=== PATIENT | female | born 1985 | race American Indian/Alaskan Native ===

== ENCOUNTER 2018-03-15 11:03 | Inpatient (IN) | payer OTHER ==
[2018-03-15 12:42] LABS: HCG Qualitative,Urine Negative (Negative)
[2018-03-15 12:47] LABS: Bacteria,Urine 1+ /HPF (Negative); Bilirubin,Urine NEG (Negative); Blood,Urine NEG (Negative); Color,Urine Yellow (Yellow); Mucus,Urine FEW /HPF; Protein,Urine <15 mg/dL mg/dL (Negative); Urobilinogen,Urine < 2.0 mg/dL (<2.0)
[2018-03-15] MEDS ORDERED: BENTYL IM ONE (13:10)
[2018-03-15] MEDS ORDERED: ZOFRAN IV ONE ×2 (13:10→19:12)
[2018-03-15] MEDS ORDERED: PEPCID IV ONE (13:10)
[2018-03-15] MEDS ORDERED: NACL 0.9% 1000 ML 1,000 ML IV ONE (13:12)
--- NOTE | 2018-03-15 13:13 | Emergency Department Report ---
Blank Doc - Documentation Documentation: Patient is a 32-year-old female presented with nausea vomiting diarrhea for the past 2-3 days. Patient states she has some crampy diffuse abdominal discomfort. There is no point tenderness on palpation. Brief physical exam. Patient does state that she is feeling somewhat dizzy and her urinalysis she does have large amount of ketones without glucose. Patient will be moved to a treatment area for IV fluids and we'll check some basic labs just to rule out any acute electrolyte abnormality.
[2018-03-15 13:40] LABS: Basophils % (Auto) 0.3 % (0.0-1.8); Eosinophils % (Auto) 0.3 % (0.0-4.3); Hematocrit 45.4 % (30.3-42.9); Hemoglobin 15.1 gm/dl (10.1-14.3); Lymphocytes # (Auto) 1.3 K/mm3 (1.2-5.4); Lymphocytes % (Auto) 7.8 % (13.4-35.0); Mean Corpuscular HGB Conc 33 % (30-34); Mean Corpuscular Hemoglobin 30 pg (28-32); Mean Corpuscular Volume 90 fl (79-97); Monocytes # (Auto) 0.5 K/mm3 (0.0-0.8); Monocytes % (Auto) 3.2 % (0.0-7.3); Platelet Count 315 K/mm3 (140-440); Red Blood Count 5.04 M/mm3 (3.65-5.03); Red Cell Distribution Width 14.7 % (13.2-15.2)
[2018-03-15] MEDS ORDERED: D5NS 1,000 ML IV SCH (14:00)
[2018-03-15 14:02] LABS: BUN/Creatinine Ratio 24; Blood Urea Nitrogen 19 mg/dL (7-17); Calcium 9.6 mg/dL (8.4-10.2)
[2018-03-15 14:03] LABS: Alanine Aminotransferase 30 units/L (7-56); Albumin 4.8 g/dL (3.9-5); Hemolysis Index 19
--- NOTE | 2018-03-15 14:40 | Emergency Department Report ---
ED Abdominal Pain HPI - General Chief Complaint: Nausea/Vomiting/Diarrhea Stated Complaint: FLU LIKE SYMPTOMS Time Seen by Provider: 03/15/18 13:06 Source: patient Mode of arrival: Ambulatory Limitations: No Limitations - History of Present Illness Initial Comments: This is a 32-year-old female nontoxic, well nourished in appearance, no acute signs of distress presents to the ED with c/o of abdominal pain, nausea, vomiting and diarrhea x2 days. Patient describes abdominal pain as cramping and aching diffuse with level of 8/10. Patient stated that during vomiting she becomes shortness of breathe but otherwise patient denies any shortness of breathe. Patient denies any chest pain, headache, stiff neck, numbness, tingling , back pain, fever, chills, cough, hemoptysis, calf pain or calf tenderness. Patient denies any recent travels, long car rides, or recent hospital stays. Patient denies any allergies or PMH. MD Complaint: abdominal pain -: days(s) (2) Location: diffuse Radiation: none Migration to: no migration Severity: mild Severity scale (0 -10): 8 Quality: cramping, aching Consistency: constant Improves With: nothing Worsens With: nothing Associated Symptoms: nausea, vomiting, diarrhea. denies: fever, chills, constipation, dysuria, hematemesis, hematochezia, melena, hematuria, anorexia, syncope - Related Data LMP Date: 03/08/18 Home Medications Medication Instructions Recorded Confirmed Last Taken No Known Home Medications [No 03/15/18 03/15/18 Unknown Reported Home Medications] Allergies Allergy/AdvReac Type Severity Reaction Status Date / Time No Known Allergies Allergy Unverified 03/15/18 11:38 ED Review of Systems ROS: Stated complaint: FLU LIKE SYMPTOMS Other details as noted in HPI Constitutional: denies: chills, fever Eyes: denies: eye pain, eye discharge, vision change ENT: denies: ear pain, throat pain Respiratory: denies: cough, shortness of breath, wheezing Cardiovascular: denies: chest pain, palpitations Endocrine: no symptoms reported Gastrointestinal: abdominal pain, nausea, vomiting, diarrhea Genitourinary: denies: urgency, dysuria, discharge Musculoskeletal: denies: back pain, joint swelling, arthralgia Skin: denies: rash, lesions Neurological: denies: headache, weakness, paresthesias Psychiatric: denies: anxiety, depression Hematological/Lymphatic: denies: easy bleeding, easy bruising ED Past Medical Hx - Past Medical History Hx Asthma: Yes (bronchitis) - Surgical History Past Surgical History?: No - Social History Smoking Status: Current Every Day Smoker Substance Use Type: Alcohol, Marijuana - Medications Home Medications: Home Medications Medication Instructions Recorded Confirmed Last Taken Type No Known Home Medications [No 03/15/18 03/15/18 Unknown History Reported Home Medications] ED Physical Exam - General Limitations: No Limitations General appearance: alert, in no apparent distress - Head Head exam: Present: atraumatic, normocephalic - Eye Eye exam: Present: normal appearance Pupils: Present: normal accommodation - ENT ENT exam: Present: normal exam, normal orophraynx, mucous membranes moist, TM's normal bilaterally, normal external ear exam - Neck Neck exam: Present: normal inspection, full ROM. Absent: tenderness, meningismus, lymphadenopathy - Respiratory Respiratory exam: Present: normal lung sounds bilaterally. Absent: respiratory distress, wheezes, rales, rhonchi, stridor, chest wall tenderness, accessory muscle use, decreased breath sounds, prolonged expiratory - Cardiovascular Cardiovascular Exam: Present: regular rate, normal rhythm, normal heart sounds. Absent: irregular rhythm, systolic murmur, diastolic murmur, rubs, gallop - GI/Abdominal GI/Abdominal exam: Present: soft, tenderness (diffuse), normal bowel sounds. Absent: distended, guarding, rebound, rigid, diminished bowel sounds - Expanded GI/Abdominal Exam Expanded GI/Abdominal exam: Absent: psoas sign, obturator sign, heel tap sign, Jacobs's sign, Rovsing's sign, tenderness at Mcburney's Point, ascites - Rectal Rectal exam: Present: deferred - Extremities Exam Extremities exam: Present: normal inspection, full ROM, normal capillary refill - Back Exam Back exam: Present: normal inspection, full ROM - Neurological Exam Neurological exam: Present: alert, oriented X3, CN II-XII intact, normal gait - Psychiatric Psychiatric exam: Present: normal affect, normal mood - Skin Skin exam: Present: warm, dry, intact, normal color. Absent: rash ED Course Vital Signs 03/15/18 11:33 Temperature 97.7 F Pulse Rate 100 H Respiratory 20 Rate Blood Pressure 101/71 O2 Sat by Pulse 100 Oximetry - Reevaluation(s) Reevaluation #1: 03/15/18 14:51 Patient is speaking in full sentences with no signs of distress noted. - Consultations Consultation #1: 03/15/18 14:52 Patient has been consulted with Dr. Leal about patient history, physical exam , and labs and examined and screened patient and agrees to ED plan of care. Consultation #2: 03/15/18 16:40 Dr. Bateman hospitalist was consulted about patient and accepts patient to his services. Requested for Zosyn and Flagyl and bridge orders to [facility] with NPO diet. ED Medical Decision Making - Lab Data Result diagrams: 03/15/18 13:22 03/15/18 13:22 - Medical Decision Making This is a 32-year-old female that presents with acute colitis. Patient stable was examined by me and Dr. Leal. A CT of abdomen with contrast obtained and dictated by the radiologist. Patient is notified of the CT report with no questionable for the patient. Patient is started on Flagyl and Zosyn as requested by Dr. Bateman. Patient is admitted under hospitalist Dr. aBteman onto [facility]. Labs obtained. At time of admission, the patient does not seem toxic or ill in appearance. No acute signs of distress noted. Patient agrees to admission treatment plan of care. No further questions noted by the patient. Critical care attestation.: If time is entered above; I have spent that time in minutes in the direct care of this critically ill patient, excluding procedure time. ED Disposition Clinical Impression: Acute colitis Disposition: 09 OP ADMIT IP TO THIS HOSP Is pt being admited?: Yes Condition: Stable Referrals: PRIMARY CARE, [Primary Care Provider] - 3-5 Days
[2018-03-15 15:29] LABS: Lipase 10 units/L (13-60)
--- NOTE | 2018-03-15 16:03 | Cat Scan Report ---
FINAL REPORT PROCEDURE: CT ABDOMEN PELVIS W CON TECHNIQUE: Computerized axial tomography of the abdomen and pelvis was performed after the IV injection of iodinated nonionic contrast. HISTORY: abd pain COMPARISON: No prior studies are available for comparison. FINDINGS: Lower Lung kennedy: No focal abnormality seen. Upper Abdomen: There is a 5.6 millimeter well-circumscribed low-density nodule in the right lobe of the liver inferiorly laterally which appears represent a small hepatic cyst. The liver is otherwise unremarkable. The gallbladder, the adrenal glands, the pancreas and the spleen are unremarkable. Kidneys, Ureters and Urinary bladder: No abnormalities are seen. Retroperitoneum: Abdominal aorta appears normal. Nonspecific subcentimeter lymph nodes are seen in the retroperitoneum. No pathologically enlarged lymph nodes are identified. Bowel: There is abnormal wall thickening seen in the ascending colon, the hepatic flexure, the transverse colon splenic flexure and descending colon. I do not see evidence of bowel obstruction. No ascites or free intraperitoneal gas is seen. Normal-appearing appendix is seen in the right lower quadrant. Bowel loops otherwise are unremarkable. Reproductive organs: The uterus is deviated to the left of midline otherwise is unremarkable. No abnormal adnexal masses are identified. Other: No acute bony abnormalities are seen. IMPRESSION: Abnormal wall thickening seen right side of the colon transverse colon and descending colon consistent with a nonspecific colitis. Consider infectious colitis and inflammatory bowel disease. Barium enema may helpful for further evaluation. Small hepatic cyst is suspected. No other abnormalities are identified.
[2018-03-15] MEDS ORDERED: LEVAQUIN 750MG/150ML 750 MG/150 ML BAG IV ONE (16:16)
[2018-03-15] MEDS ORDERED: FLAGYL 500 MG/100 ML 500 MG/100 ML BAG IV SCH (17:00)
[2018-03-15] MEDS ORDERED: ZOSYN/NS 4.5GM/100ML 4.5 GM/100 ML VIAL IV ONE (17:30)
[2018-03-15] MEDS ORDERED: FLAGYL 500 MG/100 ML 500 MG/100 ML BAG IV ONE (17:57)
[2018-03-15] MEDS ORDERED: ZOFRAN ONE (19:12)
--- NOTE | 2018-03-15 21:25 | XRay Report ---
FINAL REPORT PROCEDURE: XR CHEST ROUTINE 2V TECHNIQUE: PA and lateral chest radiographs were obtained. CPT 35818 HISTORY: sob COMPARISON: No prior studies are available for comparison. FINDINGS: Heart: Upper normal size.. Mediastinum/Vessels: Normal. Lungs/Pleural space: Normal. Bony thorax: No acute osseous abnormality. Other: IMPRESSION: Heart size upper normal otherwise negative exam..
[2018-03-15] MEDS ORDERED: ZOFRAN IV PRN (21:54)
--- NOTE | 2018-03-15 23:29 | History and Physical Report ---
History of Present Illness Date of examination: 03/15/18 Date of admission: 03/15/18 16:39 Chief complaint: Chief complaint: Abdominal pain and vomiting History of present illness: History of Present Illness: 32-year-old female comes in with severe abdominal pain nausea vomiting of 2 days ' duration. Patient tells me that there is no diarrhea even though the ED notes that there is diarrhea. No fever no chills. First episode. Pain is about 10 on a scale of 1-10. Never happened before. No cough tenderness. No muscle spasms. No exacerbating or relieving factors. Pain is diffuse all over the abdomen sharp in nature. No radiation. Past Medical History Hx Asthma: Yes (bronchitis) - Surgical History Past Surgical History?: No - Social History Smoking Status: Current Every Day Smoker Substance Use Type: Alcohol, Marijuana Family history Noncontributory - Medications Home Medications: Home Medications Medication Instructions Recorded Confirmed Last Taken Type No Known Home Medications [No 03/15/18 03/15/18 Unknown History Reported Home Medications] Review of Systems ROS: Stated complaint: FLU LIKE SYMPTOMS Other details as noted in HPI Constitutional: denies: chills, fever Eyes: denies: eye pain, eye discharge, vision change ENT: denies: ear pain, throat pain Respiratory: denies: cough, shortness of breath, wheezing Cardiovascular: denies: chest pain, palpitations Endocrine: no symptoms reported Gastrointestinal: abdominal pain, nausea, vomiting, diarrhea Genitourinary: denies: urgency, dysuria, discharge Musculoskeletal: denies: back pain, joint swelling, arthralgia Skin: denies: rash, lesions Neurological: denies: headache, weakness, paresthesias Psychiatric: denies: anxiety, depression Hematological/Lymphatic: denies: easy bleeding, easy bruising Medications and Allergies Allergies Allergy/AdvReac Type Severity Reaction Status Date / Time No Known Allergies Allergy Unverified 03/15/18 11:38 Home Medications Medication Instructions Recorded Confirmed Last Taken Type No Known Home Medications [No 03/15/18 03/15/18 Unknown History Reported Home Medications] Active Meds: Active Medications Dextrose/Sodium Chloride (D5ns) 1,000 mls @ 999 mls/hr IV DIRECT SHERRON Last Admin: 03/15/18 16:40 Dose: 999 mls/hr Metronidazole (Flagyl 500 Mg/100 Ml) 500 mg in 100 mls @ 200 mls/hr IV ONCE SHERRON Last Admin: 03/15/18 18:04 Dose: 200 mls/hr Ondansetron HCl (Zofran) 4 mg IV Q4H PRN PRN Reason: Nausea And Vomiting Last Admin: 03/15/18 23:26 Dose: 4 mg Exam - Physical Exam Narrative exam: Lying in bed uncomfortable - Constitutional Vitals: Temp Pulse Resp BP Pulse Ox 97.7 F 100 H 20 101/71 100 03/15/18 11:33 03/15/18 11:33 03/15/18 11:33 03/15/18 11:33 03/15/18 11:33 General appearance: Present: severe distress, well-nourished - EENT Eyes: Present: PERRL ENT: hearing intact, clear oral mucosa - Neck Neck: Present: supple, normal ROM - Respiratory Respiratory effort: normal Respiratory: bilateral: CTA - Cardiovascular Heart rate: 80 Rhythm: regular Heart Sounds: Present: S1 & S2. Absent: rub, click - Extremities Extremities: no ischemia, pulses intact, pulses symmetrical, No edema Peripheral Pulses: within normal limits - Abdominal General gastrointestinal: Present: soft, non-tender, non-distended, normal bowel sounds Localized gastrointestinal: tender: diffuse (no guarding or rigidity) Female genitourinary: Present: deferred, normal - Rectal Rectal Exam: deferred - Integumentary Integumentary: Present: clear, warm, dry - Musculoskeletal Musculoskeletal: gait normal, strength equal bilaterally - Psychiatric Psychiatric: appropriate mood/affect, intact judgment & insight - Neurologic Neurologic: CNII-XII intact, moves all extremities - Allied Health Allied health notes reviewed: nursing, case management Results - Labs CBC & Chem 7: 03/15/18 13:22 03/15/18 13:22 Labs: Laboratory Last Values WBC 17.1 K/mm3 (4.5-11.0) H 03/15/18 13:22 RBC 5.04 M/mm3 (3.65-5.03) H 03/15/18 13:22 Hgb 15.1 gm/dl (10.1-14.3) H 03/15/18 13:22 Hct 45.4 % (30.3-42.9) H 03/15/18 13:22 MCV 90 fl (79-97) 03/15/18 13:22 MCH 30 pg (28-32) 03/15/18 13:22 MCHC 33 % (30-34) 03/15/18 13:22 RDW 14.7 % (13.2-15.2) 03/15/18 13:22 Plt Count 315 K/mm3 (140-440) 03/15/18 13:22 Lymph % (Auto) 7.8 % (13.4-35.0) L 03/15/18 13:22 [place] % (Auto) 3.2 % (0.0-7.3) 03/15/18 13:22 Eos % (Auto) 0.3 % (0.0-4.3) 03/15/18 13:22 Baso % (Auto) 0.3 % (0.0-1.8) 03/15/18 13:22 Lymph # 1.3 K/mm3 (1.2-5.4) 03/15/18 13:22 [place] # 0.5 K/mm3 (0.0-0.8) 03/15/18 13:22 Eos # 0.0 K/mm3 (0.0-0.4) 03/15/18 13:22 Baso # 0.0 K/mm3 (0.0-0.1) 03/15/18 13:22 Seg Neutrophils % 88.4 % (40.0-70.0) H 03/15/18 13:22 Seg Neutrophils # 15.1 K/mm3 (1.8-7.7) H 03/15/18 13:22 Sodium 141 mmol/L (137-145) 03/15/18 13:22 Potassium 4.5 mmol/L (3.6-5.0) 03/15/18 13:22 Chloride 102.0 mmol/L (98-107) 03/15/18 13:22 Carbon Dioxide 17 mmol/L (22-30) L 03/15/18 13:22 Anion Gap 27 mmol/L 03/15/18 13:22 BUN 19 mg/dL (7-17) H 03/15/18 13:22 Creatinine 0.8 mg/dL (0.7-1.2) 03/15/18 13:22 Estimated GFR > 60 ml/min 03/15/18 13:22 BUN/Creatinine Ratio 24 % 03/15/18 13:22 Glucose 100 mg/dL (65-100) 03/15/18 13:22 Lactic Acid 1.80 mmol/L (0.7-2.0) 03/15/18 14:59 Calcium 9.6 mg/dL (8.4-10.2) 03/15/18 13:22 Total Bilirubin 0.50 mg/dL (0.1-1.2) 03/15/18 13:22 AST 31 units/L (5-40) 03/15/18 13:22 ALT 30 units/L (7-56) 03/15/18 13:22 Alkaline Phosphatase 67 units/L (35-129) 03/15/18 13:22 Total Protein 8.4 g/dL (6.3-8.2) H 03/15/18 13:22 Albumin 4.8 g/dL (3.9-5) 03/15/18 13:22 Albumin/Globulin Ratio 1.3 % 03/15/18 13:22 Amylase 81 units/L (27-131) 03/15/18 14:59 Lipase 10 units/L (13-60) L 03/15/18 14:59 Urine Color Yellow (Yellow) 03/15/18 12:20 Urine Turbidity Clear (Clear) 03/15/18 12:20 Urine pH 5.0 (5.0-7.0) 03/15/18 12:20 Ur Specific [place] 1.014 (1.003-1.030) 03/15/18 12:20 Urine Protein <15 mg/dl mg/dL (Negative) 03/15/18 12:20 Urine Glucose (UA) Neg mg/dL (Negative) 03/15/18 12:20 Urine Ketones 80 mg/dL (Negative) 03/15/18 12:20 Urine Blood Neg (Negative) 03/15/18 12:20 Urine Nitrite Neg (Negative) 03/15/18 12:20 Ur Reducing Substances Not Reportable 03/15/18 12:20 Urine Bilirubin Neg (Negative) 03/15/18 12:20 Urine Ictotest Not Reportable 03/15/18 12:20 Urine Urobilinogen < 2.0 mg/dL (<2.0) 03/15/18 12:20 Ur Leukocyte Esterase Sm (Negative) 03/15/18 12:20 Urine WBC (Auto) 1.0 /HPF (0.0-6.0) 03/15/18 12:20 Urine RBC (Auto) 5.0 /HPF (0.0-6.0) 03/15/18 12:20 U Epithel Cells (Auto) 7.0 /HPF (0-13.0) 03/15/18 12:20 Urine Bacteria (Auto) 1+ /HPF (Negative) 03/15/18 12:20 Urine Mucus Few /HPF 03/15/18 12:20 Urine Yeast (Budding) Few /HPF 03/15/18 12:20 Urine HCG, Qual Negative (Negative) 03/15/18 12:20 Short CBC 03/15/18 Range/Units 13:22 WBC 17.1 H (4.5-11.0) K/mm3 Hgb 15.1 H (10.1-14.3) gm/dl Hct 45.4 H (30.3-42.9) % Plt Count 315 (140-440) K/mm3 BMP 03/15/18 13:22 Sodium 141 Potassium 4.5 Chloride 102.0 Carbon Dioxide 17 L BUN 19 H Creatinine 0.8 Glucose 100 Calcium 9.6 Liver Function 03/15/18 Range/Units 13:22 Total Bilirubin 0.50 (0.1-1.2) mg/dL AST 31 (5-40) units/L ALT 30 (7-56) units/L Alkaline Phosphatase 67 (35-129) units/L Albumin 4.8 (3.9-5) g/dL Urine 03/15/18 Range/Units 12:20 Urine Color Yellow (Yellow) Urine pH 5.0 (5.0-7.0) Ur Specific [place] 1.014 (1.003-1.030) Urine Protein <15 mg/dl (Negative) mg/dL Urine Glucose (UA) Neg (Negative) mg/dL - Imaging and Cardiology Imaging and Cardiology: Abdominal CT IMPRESSION: Abnormal wall thickening seen right side of the colon transverse colon and descending colon consistent with a nonspecific colitis. Consider infectious colitis and inflammatory bowel disease. Barium enema may helpful for further evaluation. Small hepatic cyst is suspected. No other abnormalities are identified. Assessment and Plan Advance Directives: Yes (full code) VTE prophylaxis?: Chemical Plan of care discussed with patient/family: Yes - Patient Problems (1) Acute colitis Current Visit: Yes Status: Acute Plan to address problem: Patient does severe colitis Etiology unclear Patient initiated on Zosyn and Flagyl Also IV fluids for dehydration Zofran for nausea vomiting Phenergan suppositories if needed GI consult requested (2) Dehydration Current Visit: Yes Status: Acute Plan to address problem: IV fluids for now (3) DVT prophylaxis Current Visit: Yes Status: Acute Plan to address problem: On heparin/Lovenox GI prophylaxis initiated
[2018-03-15] MEDS ORDERED: PHENERGAN PR PRN (23:37)
[2018-03-15] MEDS ORDERED: SODIUM CHLORIDE FLUSH SYRINGE 10 ML IV PRN (23:37)
[2018-03-15] MEDS ORDERED: TYLENOL PO PRN (23:37)
[2018-03-16] MEDS: ZOSYN/NS 4.5GM/100ML 4.5 GM/100 ML VIAL IV SCH ×3 (03:00→18:30)
[2018-03-16] MEDS: FLAGYL 500 MG/100 ML 500 MG/100 ML BAG IV SCH ×2 (03:25→09:55)
[2018-03-16] MEDS: ZOFRAN IV PRN ×2 (04:49→15:45)
[2018-03-16] MEDS: D5W/0.45% NACL/KCL 20 MEQ 20 MEQ/1,000 ML BAG IV SCH ×2 (04:49→20:49)
[2018-03-16 06:23] LABS: Hematocrit 39.6 % (30.3-42.9); Red Blood Count 4.38 M/mm3 (3.65-5.03)
[2018-03-16 06:24] LABS: Basophils % (Auto) 0.2 % (0.0-1.8); Lymphocytes # (Auto) 1.7 K/mm3 (1.2-5.4); Lymphocytes % (Auto) 12.1 % (13.4-35.0); Mean Corpuscular HGB Conc 33 % (30-34); Mean Corpuscular Hemoglobin 30 pg (28-32); Mean Corpuscular Volume 90 fl (79-97); Monocytes # (Auto) 1.3 K/mm3 (0.0-0.8); Monocytes % (Auto) 9.9 % (0.0-7.3); Platelet Count 281 K/mm3 (140-440); Red Cell Distribution Width 14.7 % (13.2-15.2)
[2018-03-16 06:35] LABS: Alanine Aminotransferase 26 units/L (7-56); Albumin 4.1 g/dL (3.9-5); BUN/Creatinine Ratio 18; Blood Urea Nitrogen 16 mg/dL (7-17); Calcium 8.8 mg/dL (8.4-10.2); Hemolysis Index 4
[2018-03-16] MEDS: PEPCID IV SCH ×2 (09:57→22:31)
[2018-03-16] MEDS: SODIUM CHLORIDE FLUSH SYRINGE 10 ML IV SCH ×2 (09:57→22:32)
--- NOTE | 2018-03-16 10:26 | Progress Note ---
Assessment and Plan Assessment and plan: Colitis. CT scan reveals abnormal wall thickening of the right side of the colon, transverse colon and descending colon consistent with nonspecific colitis. Continue IV antibiotics. GI consultation. Sepsis. Patient meets criteria given the tachycardia, hypotension, leukocytosis and diagnosis of colitis. Continue IV antibiotics. Follow blood cultures. Asthma. Stable. History Interval history: No new issues overnight. Patient reports abdominal pain is improved. No nausea or vomiting. No fever chills. Hospitalist Physical - Constitutional Vitals: Temp Pulse Resp BP Pulse Ox 98.1 F 65 16 95/58 100 03/16/18 07:59 03/16/18 07:59 03/16/18 07:59 03/16/18 07:59 03/16/18 07:59 General appearance: Present: no acute distress, well-nourished - EENT Eyes: Present: PERRL, EOM intact ENT: hearing intact, clear oral mucosa, dentition normal - Neck Neck: Present: supple, normal ROM - Respiratory Respiratory effort: normal Respiratory: bilateral: CTA - Cardiovascular Rhythm: regular Heart Sounds: Present: S1 & S2. Absent: gallop, rub - Extremities Extremities: no ischemia, No edema, Full ROM - Abdominal General gastrointestinal: soft, non-tender, non-distended, normal bowel sounds - Integumentary Integumentary: Present: clear, warm, dry - Neurologic Neurologic: CNII-XII intact, moves all extremities Results - Labs CBC & Chem 7: 03/16/18 05:32 03/16/18 05:32 Labs: Laboratory Last Values WBC 13.7 K/mm3 (4.5-11.0) H 03/16/18 05:32 RBC 4.38 M/mm3 (3.65-5.03) 03/16/18 05:32 Hgb 13.0 gm/dl (10.1-14.3) 03/16/18 05:32 Hct 39.6 % (30.3-42.9) 03/16/18 05:32 MCV 90 fl (79-97) 03/16/18 05:32 MCH 30 pg (28-32) 03/16/18 05:32 MCHC 33 % (30-34) 03/16/18 05:32 RDW 14.7 % (13.2-15.2) 03/16/18 05:32 Plt Count 281 K/mm3 (140-440) 03/16/18 05:32 Lymph % (Auto) 12.1 % (13.4-35.0) L 03/16/18 05:32 [place] % (Auto) 9.9 % (0.0-7.3) H 03/16/18 05:32 Eos % (Auto) 0.0 % (0.0-4.3) 03/16/18 05:32 Baso % (Auto) 0.2 % (0.0-1.8) 03/16/18 05:32 Lymph # 1.7 K/mm3 (1.2-5.4) 03/16/18 05:32 [place] # 1.3 K/mm3 (0.0-0.8) H 03/16/18 05:32 Eos # 0.0 K/mm3 (0.0-0.4) 03/16/18 05:32 Baso # 0.0 K/mm3 (0.0-0.1) 03/16/18 05:32 Seg Neutrophils % 77.8 % (40.0-70.0) H 03/16/18 05:32 Seg Neutrophils # 10.6 K/mm3 (1.8-7.7) H 03/16/18 05:32 Sodium 145 mmol/L (137-145) 03/16/18 05:32 Potassium 4.3 mmol/L (3.6-5.0) 03/16/18 05:32 Chloride 108.5 mmol/L (98-107) H 03/16/18 05:32 Carbon Dioxide 23 mmol/L (22-30) 03/16/18 05:32 Anion Gap 18 mmol/L 03/16/18 05:32 BUN 16 mg/dL (7-17) 03/16/18 05:32 Creatinine 0.9 mg/dL (0.7-1.2) 03/16/18 05:32 Estimated GFR > 60 ml/min 03/16/18 05:32 BUN/Creatinine Ratio 18 % 03/16/18 05:32 Glucose 122 mg/dL (65-100) H 03/16/18 05:32 Lactic Acid 1.80 mmol/L (0.7-2.0) 03/15/18 14:59 Calcium 8.8 mg/dL (8.4-10.2) 03/16/18 05:32 Total Bilirubin 0.50 mg/dL (0.1-1.2) 03/16/18 05:32 AST 26 units/L (5-40) 03/16/18 05:32 ALT 26 units/L (7-56) 03/16/18 05:32 Alkaline Phosphatase 53 units/L (35-129) 03/16/18 05:32 Total Protein 6.8 g/dL (6.3-8.2) 03/16/18 05:32 Albumin 4.1 g/dL (3.9-5) 03/16/18 05:32 Albumin/Globulin Ratio 1.5 % 03/16/18 05:32 Amylase 81 units/L (27-131) 03/15/18 14:59 Lipase 10 units/L (13-60) L 03/15/18 14:59 Urine Color Yellow (Yellow) 03/15/18 12:20 Urine Turbidity Clear (Clear) 03/15/18 12:20 Urine pH 5.0 (5.0-7.0) 03/15/18 12:20 Ur Specific [place] 1.014 (1.003-1.030) 03/15/18 12:20 Urine Protein <15 mg/dl mg/dL (Negative) 03/15/18 12:20 Urine Glucose (UA) Neg mg/dL (Negative) 03/15/18 12:20 Urine Ketones 80 mg/dL (Negative) 03/15/18 12:20 Urine Blood Neg (Negative) 03/15/18 12:20 Urine Nitrite Neg (Negative) 03/15/18 12:20 Ur Reducing Substances Not Reportable 03/15/18 12:20 Urine Bilirubin Neg (Negative) 03/15/18 12:20 Urine Ictotest Not Reportable 03/15/18 12:20 Urine Urobilinogen < 2.0 mg/dL (<2.0) 03/15/18 12:20 Ur Leukocyte Esterase Sm (Negative) 03/15/18 12:20 Urine WBC (Auto) 1.0 /HPF (0.0-6.0) 03/15/18 12:20 Urine RBC (Auto) 5.0 /HPF (0.0-6.0) 03/15/18 12:20 U Epithel Cells (Auto) 7.0 /HPF (0-13.0) 03/15/18 12:20 Urine Bacteria (Auto) 1+ /HPF (Negative) 03/15/18 12:20 Urine Mucus Few /HPF 03/15/18 12:20 Urine Yeast (Budding) Few /HPF 03/15/18 12:20 Urine HCG, Qual Negative (Negative) 03/15/18 12:20
--- NOTE | 2018-03-16 10:50 | Gastroenterology Consultation ---
<CRYSTAL CAMERON - Last Filed: 03/16/18 11:04> History of Present Illness - Reason for Consult Consult date: 03/16/18 colitis Requesting physician: MANISH REYES - History of Present Illness Patient is a 32 y/o female with PMH of asthma who presented to ED with c/o abdominal pain and associated N/V x [address] showed colitis to which GI has been consulted. This morning pt was resting in bed w/o acute distress. She reports drinking a 1/2 gallon of tequila on Thursday prior to developing symptoms. States abd pain has now improved. C/o continued nausea with one episode of vomiting this am. No fever, diarrhea, or signs of bleeding. No recent abx therapy, travel, or ill contacts. No hx or Fhx of IBD. Past History Past Medical History: other (asthma) Past Surgical History: No surgical history Social history: smoking, other (Alcohol, Marijuana) Family history: no significant family history Medications and Allergies Allergies Allergy/AdvReac Type Severity Reaction Status Date / Time No Known Allergies Allergy Unverified 03/15/18 11:38 Home Medications Medication Instructions Recorded Confirmed Last Taken Type No Known Home Medications [No 03/15/18 03/15/18 Unknown History Reported Home Medications] Active Meds: Active Medications Acetaminophen (Tylenol) 650 mg PO Q4H PRN PRN Reason: Pain MILD(1-3)/Fever >100.5/DUNN Famotidine (Pepcid) 20 mg IV BID SHERRON Last Admin: 03/16/18 09:57 Dose: 20 mg Dextrose/Sodium Chloride (D5ns) 1,000 mls @ 999 mls/hr IV DIRECT SHERRON Last Admin: 03/15/18 16:40 Dose: 999 mls/hr Potassium Chloride/Dextrose/Sod Cl (D5w/0.45% Nacl/Kcl 20 Meq) 20 meq in 1,000 mls @ 100 mls/hr IV DIRECT SHERRON Last Admin: 03/16/18 04:49 Dose: 100 mls/hr Piperacillin Sod/Tazobactam Sod (Zosyn/Ns 4.5gm/100ml) 4.5 gm in 100 mls @ 200 mls/hr IV Q8H SHERRON; Protocol Last Admin: 03/16/18 09:55 Dose: 200 mls/hr Metronidazole (Flagyl 500 Mg/100 Ml) 500 mg in 100 mls @ 100 mls/hr IV Q8H SHERRON ; Protocol Last Admin: 03/16/18 09:55 Dose: 100 mls/hr Morphine Sulfate (Morphine) 4 mg IV Q4H PRN PRN Reason: Pain, Moderate (4-6) Ondansetron HCl (Zofran) 4 mg IV Q8H PRN PRN Reason: Nausea And Vomiting Last Admin: 03/16/18 04:49 Dose: 4 mg Promethazine HCl (Phenergan) 25 mg OK Q6H PRN PRN Reason: N/V IF NPO AND NO IV ACCESS Last Admin: 03/16/18 09:57 Dose: 25 mg Sodium Chloride (Sodium Chloride Flush Syringe 10 Ml) 10 ml IV BID SHERRON Last Admin: 03/16/18 09:57 Dose: 10 ml Sodium Chloride (Sodium Chloride Flush Syringe 10 Ml) 10 ml IV PRN PRN PRN Reason: LINE FLUSH Review of Systems - Review of Systems All systems: negative Gastrointestinal: abdominal pain, nausea, vomiting Exam - Constitutional Vital Signs: Temp Pulse Resp BP Pulse Ox 98.1 F 65 16 95/58 100 03/16/18 07:59 03/16/18 07:59 03/16/18 07:59 03/16/18 07:59 03/16/18 07:59 General appearance: no acute distress - EENT Eyes: PERRL, EOM intact ENT: hearing intact - Respiratory Respiratory: bilateral: CTA - Cardiovascular Rhythm: regular Heart Sounds: Present: S1 & S2 - Gastrointestinal General gastrointestinal: Present: soft, tender (mild generalized TTP), non- distended, normal bowel sounds - Integumentary Integumentary: Present: warm, dry - Neurologic Neurological: alert and oriented x3 - Labs CBC & Chem 7: 03/16/18 05:32 03/16/18 05:32 Lab Results: Laboratory Results - last 24 hr 03/15/18 03/15/18 03/15/18 12:20 13:22 13:22 WBC 17.1 H RBC 5.04 H Hgb 15.1 H Hct 45.4 H MCV 90 MCH 30 MCHC 33 RDW 14.7 Plt Count 315 Lymph % (Auto) 7.8 L Coffee % (Auto) 3.2 Eos % (Auto) 0.3 Baso % (Auto) 0.3 Lymph # 1.3 Coffee # 0.5 Eos # 0.0 Baso # 0.0 Seg Neutrophils % 88.4 H Seg Neutrophils # 15.1 H Sodium 141 Potassium 4.5 Chloride 102.0 Carbon Dioxide 17 L Anion Gap 27 BUN 19 H Creatinine 0.8 Estimated GFR > 60 BUN/Creatinine Ratio 24 Glucose 100 Lactic Acid Calcium 9.6 Total Bilirubin 0.50 AST 31 ALT 30 Alkaline Phosphatase 67 Total Protein 8.4 H Albumin 4.8 Albumin/Globulin Ratio 1.3 Amylase Lipase Urine Color Yellow Urine Turbidity Clear Urine pH 5.0 Ur Specific [place] 1.014 Urine Protein <15 mg/dl Urine Glucose (UA) Neg Urine Ketones 80 Urine Blood Neg Urine Nitrite Neg Ur Reducing Substances Not Reportable Urine Bilirubin Neg Urine Ictotest Not Reportable Urine Urobilinogen < 2.0 Ur Leukocyte Esterase Sm Urine WBC (Auto) 1.0 Urine RBC (Auto) 5.0 U Epithel Cells (Auto) 7.0 Urine Bacteria (Auto) 1+ Urine Mucus Few Urine Yeast (Budding) Few Urine HCG, Qual Negative 03/15/18 03/15/18 03/16/18 14:59 14:59 05:32 WBC 13.7 H RBC 4.38 Hgb 13.0 Hct 39.6 MCV 90 MCH 30 MCHC 33 RDW 14.7 Plt Count 281 Lymph % (Auto) 12.1 L [place] % (Auto) 9.9 H Eos % (Auto) 0.0 Baso % (Auto) 0.2 Lymph # 1.7 Coffee # 1.3 H Eos # 0.0 Baso # 0.0 Seg Neutrophils % 77.8 H Seg Neutrophils # 10.6 H Sodium Potassium Chloride Carbon Dioxide Anion Gap BUN Creatinine Estimated GFR BUN/Creatinine Ratio Glucose Lactic Acid 1.80 Calcium Total Bilirubin AST ALT Alkaline Phosphatase Total Protein Albumin Albumin/Globulin Ratio Amylase 81 Lipase 10 L Urine Color Urine Turbidity Urine pH Ur Specific [place] Urine Protein Urine Glucose (UA) Urine Ketones Urine Blood Urine Nitrite Ur Reducing Substances Urine Bilirubin Urine Ictotest Urine Urobilinogen Ur Leukocyte Esterase Urine WBC (Auto) Urine RBC (Auto) U Epithel Cells (Auto) Urine Bacteria (Auto) Urine Mucus Urine Yeast (Budding) Urine HCG, Qual 03/16/18 05:32 WBC RBC Hgb Hct MCV MCH MCHC RDW Plt Count Lymph % (Auto) Coffee % (Auto) Eos % (Auto) Baso % (Auto) Lymph # Coffee # Eos # Baso # Seg Neutrophils % Seg Neutrophils # Sodium 145 Potassium 4.3 Chloride 108.5 H Carbon Dioxide 23 Anion Gap 18 BUN 16 Creatinine 0.9 Estimated GFR > 60 BUN/Creatinine Ratio 18 Glucose 122 H Lactic Acid Calcium 8.8 Total Bilirubin 0.50 AST 26 ALT 26 Alkaline Phosphatase 53 Total Protein 6.8 Albumin 4.1 Albumin/Globulin Ratio 1.5 Amylase Lipase Urine Color Urine Turbidity Urine pH Ur Specific [place] Urine Protein Urine Glucose (UA) Urine Ketones Urine Blood Urine Nitrite Ur Reducing Substances Urine Bilirubin Urine Ictotest Urine Urobilinogen Ur Leukocyte Esterase Urine WBC (Auto) Urine RBC (Auto) U Epithel Cells (Auto) Urine Bacteria (Auto) Urine Mucus Urine Yeast (Budding) Urine HCG, Qual Assessment and Plan 1.colitis 2.N/V -afebrile -WBC-13.7 trending down -CT showed colitis -etiology unclear- possibly infectious vs inflammatory vs other -recommend stool studies if diarrhea develops -clear liquids- advance as tolerated -continue current medications and supportive care -will follow <ROB STERLING - Last Filed: 03/16/18 21:13> Medications and Allergies Active Meds: Active Medications Acetaminophen (Tylenol) 650 mg PO Q4H PRN PRN Reason: Pain MILD(1-3)/Fever >100.5/DUNN Famotidine (Pepcid) 20 mg IV BID SHERRON Last Admin: 03/16/18 09:57 Dose: 20 mg Dextrose/Sodium Chloride (D5ns) 1,000 mls @ 999 mls/hr IV DIRECT SHERRON Last Admin: 03/15/18 16:40 Dose: 999 mls/hr Potassium Chloride/Dextrose/Sod Cl (D5w/0.45% Nacl/Kcl 20 Meq) 20 meq in 1,000 mls @ 100 mls/hr IV DIRECT SHERRON Last Admin: 03/16/18 20:49 Dose: 100 mls/hr Piperacillin Sod/Tazobactam Sod (Zosyn/Ns 4.5gm/100ml) 4.5 gm in 100 mls @ 200 mls/hr IV Q8H SHERRON; Protocol Last Admin: 03/16/18 18:30 Dose: 200 mls/hr Morphine Sulfate (Morphine) 4 mg IV Q4H PRN PRN Reason: Pain, Moderate (4-6) Last Admin: 03/16/18 20:26 Dose: 4 mg Ondansetron HCl (Zofran) 4 mg IV Q8H PRN PRN Reason: Nausea And Vomiting Last Admin: 03/16/18 15:45 Dose: 4 mg Promethazine HCl (Phenergan) 25 mg OK Q6H PRN PRN Reason: N/V IF NPO AND NO IV ACCESS Last Admin: 03/16/18 09:57 Dose: 25 mg Sodium Chloride (Sodium Chloride Flush Syringe 10 Ml) 10 ml IV BID SHERRON Last Admin: 03/16/18 09:57 Dose: 10 ml Sodium Chloride (Sodium Chloride Flush Syringe 10 Ml) 10 ml IV PRN PRN PRN Reason: LINE FLUSH Exam - Constitutional Vital Signs: Temp Pulse Resp BP Pulse Ox 98.6 F 59 L 18 142/79 100 03/16/18 15:53 03/16/18 15:53 03/16/18 20:56 03/16/18 15:53 03/16/18 15:53 - Labs CBC & Chem 7: 03/16/18 05:32 03/16/18 05:32 Lab Results: Laboratory Results - last 24 hr 03/16/18 03/16/18 05:32 05:32 WBC 13.7 H RBC 4.38 Hgb 13.0 Hct 39.6 MCV 90 MCH 30 MCHC 33 RDW 14.7 Plt Count 281 Lymph % (Auto) 12.1 L [place] % (Auto) 9.9 H Eos % (Auto) 0.0 Baso % (Auto) 0.2 Lymph # 1.7 Coffee # 1.3 H Eos # 0.0 Baso # 0.0 Seg Neutrophils % 77.8 H Seg Neutrophils # 10.6 H Sodium 145 Potassium 4.3 Chloride 108.5 H Carbon Dioxide 23 Anion Gap 18 BUN 16 Creatinine 0.9 Estimated GFR > 60 BUN/Creatinine Ratio 18 Glucose 122 H Calcium 8.8 Total Bilirubin 0.50 AST 26 ALT 26 Alkaline Phosphatase 53 Total Protein 6.8 Albumin 4.1 Albumin/Globulin Ratio 1.5 Assessment and Plan pt seen and examined. agree with note above
[2018-03-16] MEDS ORDERED: ZOFRAN IV ONE (20:03)
[2018-03-16] MEDS: MORPHINE IV PRN (20:26)
[2018-03-17] MEDS: ZOSYN/NS 4.5GM/100ML 4.5 GM/100 ML VIAL IV SCH ×3 (01:47→18:01)
[2018-03-17] MEDS: D5W/0.45% NACL/KCL 20 MEQ 20 MEQ/1,000 ML BAG IV SCH ×2 (07:10→17:19)
[2018-03-17 07:47] LABS: Mean Corpuscular HGB Conc 33 % (30-34); Mean Corpuscular Hemoglobin 30 pg (28-32); Mean Corpuscular Volume 90 fl (79-97); Platelet Count 269 K/mm3 (140-440); Red Blood Count 4.33 M/mm3 (3.65-5.03); Red Cell Distribution Width 14.9 % (13.2-15.2)
[2018-03-17] MEDS: ZOFRAN IV PRN ×2 (07:48→21:36)
[2018-03-17 08:12] LABS: BUN/Creatinine Ratio 12; Blood Urea Nitrogen 12 mg/dL (7-17); Calcium 8.6 mg/dL (8.4-10.2); Hemolysis Index 7
--- NOTE | 2018-03-17 09:30 | Progress Note ---
Assessment and Plan Assessment and plan: Colitis. CT scan reveals abnormal wall thickening of the right side of the colon, transverse colon and descending colon consistent with nonspecific colitis. Continue IV antibiotics. GI following. We will obtain stool studies if diarrhea develops. Continue clear liquid diet and advance as tolerated. Sepsis. Patient meets criteria given the tachycardia, hypotension, leukocytosis and diagnosis of colitis. Continue IV antibiotics. Follow blood cultures. Asthma. Stable. History Interval history: No new issues overnight. Patient reports abdominal pain is improved. No nausea or vomiting. No fever chills. Hospitalist Physical - Constitutional Vitals: Temp Pulse Resp BP Pulse Ox 98.4 F 51 L 20 138/85 100 03/16/18 23:28 03/16/18 23:28 03/16/18 23:28 03/16/18 23:28 03/16/18 23:28 General appearance: Present: no acute distress, well-nourished - EENT Eyes: Present: PERRL, EOM intact ENT: hearing intact, clear oral mucosa, dentition normal - Neck Neck: Present: supple, normal ROM - Respiratory Respiratory effort: normal Respiratory: bilateral: CTA - Cardiovascular Rhythm: regular Heart Sounds: Present: S1 & S2. Absent: gallop, rub - Extremities Extremities: no ischemia, No edema, Full ROM - Abdominal General gastrointestinal: soft, tender, non-distended, normal bowel sounds Localized gastrointestinal: tender: diffuse (mild) - Integumentary Integumentary: Present: clear, warm, dry - Neurologic Neurologic: CNII-XII intact, moves all extremities Results - Labs CBC & Chem 7: 03/17/18 07:08 03/17/18 07:08 Labs: Laboratory Last Values WBC 9.3 K/mm3 (4.5-11.0) 03/17/18 07:08 RBC 4.33 M/mm3 (3.65-5.03) 03/17/18 07:08 Hgb 13.0 gm/dl (10.1-14.3) 03/17/18 07:08 Hct 39.0 % (30.3-42.9) 03/17/18 07:08 MCV 90 fl (79-97) 03/17/18 07:08 MCH 30 pg (28-32) 03/17/18 07:08 MCHC 33 % (30-34) 03/17/18 07:08 RDW 14.9 % (13.2-15.2) 03/17/18 07:08 Plt Count 269 K/mm3 (140-440) 03/17/18 07:08 Lymph % (Auto) 12.1 % (13.4-35.0) L 03/16/18 05:32 [place] % (Auto) [employer] 03/17/18 07:08 Eos % (Auto) 0.0 % (0.0-4.3) 03/16/18 05:32 Baso % (Auto) 0.2 % (0.0-1.8) 03/16/18 05:32 Lymph # 1.7 K/mm3 (1.2-5.4) 03/16/18 05:32 [place] # 1.3 K/mm3 (0.0-0.8) H 03/16/18 05:32 Eos # 0.0 K/mm3 (0.0-0.4) 03/16/18 05:32 Baso # 0.0 K/mm3 (0.0-0.1) 03/16/18 05:32 Seg Neutrophils % 77.8 % (40.0-70.0) H 03/16/18 05:32 Seg Neutrophils # 10.6 K/mm3 (1.8-7.7) H 03/16/18 05:32 Sodium 148 mmol/L (137-145) H 03/17/18 07:08 Potassium 3.7 mmol/L (3.6-5.0) 03/17/18 07:08 Chloride 110.1 mmol/L (98-107) H 03/17/18 07:08 Carbon Dioxide 26 mmol/L (22-30) 03/17/18 07:08 Anion Gap 16 mmol/L 03/17/18 07:08 BUN 12 mg/dL (7-17) 03/17/18 07:08 Creatinine 1.0 mg/dL (0.7-1.2) 03/17/18 07:08 Estimated GFR > 60 ml/min 03/17/18 07:08 BUN/Creatinine Ratio 12 % 03/17/18 07:08 Glucose 99 mg/dL (65-100) 03/17/18 07:08 Lactic Acid 1.80 mmol/L (0.7-2.0) 03/15/18 14:59 Calcium 8.6 mg/dL (8.4-10.2) 03/17/18 07:08 Total Bilirubin 0.50 mg/dL (0.1-1.2) 03/16/18 05:32 AST 26 units/L (5-40) 03/16/18 05:32 ALT 26 units/L (7-56) 03/16/18 05:32 Alkaline Phosphatase 53 units/L (35-129) 03/16/18 05:32 Total Protein 6.8 g/dL (6.3-8.2) 03/16/18 05:32 Albumin 4.1 g/dL (3.9-5) 03/16/18 05:32 Albumin/Globulin Ratio 1.5 % 03/16/18 05:32 Amylase 81 units/L (27-131) 03/15/18 14:59 Lipase 10 units/L (13-60) L 03/15/18 14:59 Urine Color Yellow (Yellow) 03/15/18 12:20 Urine Turbidity Clear (Clear) 03/15/18 12:20 Urine pH 5.0 (5.0-7.0) 03/15/18 12:20 Ur Specific [place] 1.014 (1.003-1.030) 03/15/18 12:20 Urine Protein <15 mg/dl mg/dL (Negative) 03/15/18 12:20 Urine Glucose (UA) Neg mg/dL (Negative) 03/15/18 12:20 Urine Ketones 80 mg/dL (Negative) 03/15/18 12:20 Urine Blood Neg (Negative) 03/15/18 12:20 Urine Nitrite Neg (Negative) 03/15/18 12:20 Ur Reducing Substances Not Reportable 03/15/18 12:20 Urine Bilirubin Neg (Negative) 03/15/18 12:20 Urine Ictotest Not Reportable 03/15/18 12:20 Urine Urobilinogen < 2.0 mg/dL (<2.0) 03/15/18 12:20 Ur Leukocyte Esterase Sm (Negative) 03/15/18 12:20 Urine WBC (Auto) 1.0 /HPF (0.0-6.0) 03/15/18 12:20 Urine RBC (Auto) 5.0 /HPF (0.0-6.0) 03/15/18 12:20 U Epithel Cells (Auto) 7.0 /HPF (0-13.0) 03/15/18 12:20 Urine Bacteria (Auto) 1+ /HPF (Negative) 03/15/18 12:20 Urine Mucus Few /HPF 03/15/18 12:20 Urine Yeast (Budding) Few /HPF 03/15/18 12:20 Urine HCG, Qual Negative (Negative) 03/15/18 12:20
[2018-03-17 10:20] LABS: Basophils % (Manual) 0 % (0.0-1.8); Eosinophils % (Manual) 0 % (0.0-4.3); RBC Morphology Normal; Total Cells Counted 100
--- NOTE | 2018-03-17 10:28 | Gastroenterology Progress Note ---
<RAKESHCRYSTAL FieldRey - Last Filed: 03/17/18 10:24> Assessment and Plan 1.colitis 2.N/V -afebrile -WBC-9.3 -WNL -CT showed colitis -etiology unclear- possibly infectious vs inflammatory vs other -recommend stool studies if diarrhea develops -clinically pt with persistent N/V and mild epigastric pain- unable to tolerate liquids -will schedule for EGD tomorrow -start on PPI -continue supportive care -will follow Subjective Date of service: 03/17/18 Principal diagnosis: colitis Interval history: Patient resting in bed w/o acute distress but ill appearing. Reports continued N /V with 3 episodes so far this am with bilious emesis and mild epigastric pain. No diarrhea or signs of bleeding. Objective - Constitutional Vitals: Temp Pulse Resp BP Pulse Ox 98.4 F 51 L 20 138/85 100 03/16/18 23:28 03/16/18 23:28 03/16/18 23:28 03/16/18 23:28 03/16/18 23:28 General appearance: no acute distress, other (ill appearing) - EENT Eyes: PERRL, EOM intact ENT: hearing intact - Respiratory Respiratory: bilateral: CTA - Cardiovascular Rhythm: regular Heart Sounds: Present: S1 & S2 - Gastrointestinal General gastrointestinal: Present: soft, tender (mild TTP in epigastric area), non-distended, normal bowel sounds - Integumentary Integumentary: Present: warm, dry - Neurologic Neurological: alert and oriented x3 - Labs CBC & Chem 7: 03/17/18 07:08 03/17/18 07:08 Labs: Laboratory Results - last 24 hr 03/17/18 03/17/18 07:08 07:08 WBC 9.3 RBC 4.33 Hgb 13.0 Hct 39.0 MCV 90 MCH 30 MCHC 33 RDW 14.9 Plt Count 269 [place] % (Auto) Print Project Manager Add Manual Diff Complete Total Counted 100 Seg Neuts % (Manual) 66.0 Band Neutrophils % 0 Lymphocytes % (Manual) 20.0 Reactive Lymphs % (Man) 0 Monocytes % (Manual) 14.0 H Eosinophils % (Manual) 0 Basophils % (Manual) 0 Metamyelocytes % 0 Myelocytes % 0 Promyelocytes % 0 Blast Cells % 0 Nucleated RBC % Not Reportable Seg Neutrophils # Man 6.1 Band Neutrophils # 0.0 Lymphocytes # (Manual) 1.9 Abs React Lymphs (Man) 0.0 Monocytes # (Manual) 1.3 H Eosinophils # (Manual) 0.0 Basophils # (Manual) 0.0 Metamyelocytes # 0.0 Myelocytes # 0.0 Promyelocytes # 0.0 Blast Cells # 0.0 WBC Morphology Not Reportable Hypersegmented Neuts Not Reportable Hyposegmented Neuts Not Reportable Hypogranular Neuts Not Reportable Smudge Cells Not Reportable Toxic Granulation Not Reportable Toxic Vacuolation Not Reportable Dohle Bodies Not Reportable Pelger-Huet Anomaly Not Reportable Lizabeth Rods Not Reportable Platelet Estimate Not Reportable Clumped Platelets Not Reportable Plt Clumps, EDTA Not Reportable Large Platelets Not Reportable Giant Platelets Not Reportable Platelet Satelliting Not Reportable Plt Morphology Comment Not Reportable RBC Morphology Normal Dimorphic RBCs Not Reportable Polychromasia Not Reportable Hypochromasia Not Reportable Poikilocytosis Not Reportable Anisocytosis Not Reportable Microcytosis Not Reportable Macrocytosis Not Reportable Spherocytes Not Reportable Pappenheimer Bodies Not Reportable Sickle Cells Not Reportable Target Cells Not Reportable Tear Drop Cells Not Reportable Ovalocytes Not Reportable Helmet Cells Not Reportable Villagomez[place] Bodies Not Reportable [place] Rings Not Reportable [place] Cells Not Reportable Bite Cells Not Reportable Crenated Cell Not Reportable Elliptocytes Not Reportable Acanthocytes (Spur) Not Reportable Rouleaux Not Reportable Hemoglobin C Crystals Not Reportable Schistocytes Not Reportable Malaria parasites Not Reportable Faisal Bodies Not Reportable Hem Pathologist Commnt No Sodium 148 H Potassium 3.7 Chloride 110.1 H Carbon Dioxide 26 Anion Gap 16 BUN 12 Creatinine 1.0 Estimated GFR > 60 BUN/Creatinine Ratio 12 Glucose 99 Calcium 8.6 <ROB STERLING - Last Filed: 03/17/18 21:41> Assessment and Plan Patient seen and examined. Agree with note above. Objective - Constitutional Vitals: Temp Pulse Resp BP Pulse Ox 98.8 F 56 L 20 137/72 100 03/17/18 12:29 03/17/18 12:29 03/17/18 21:35 03/17/18 12:29 03/17/18 12:29 - Labs CBC & Chem 7: 03/17/18 07:08 03/17/18 07:08 Labs: Laboratory Results - last 24 hr 03/17/18 03/17/18 07:08 07:08 WBC 9.3 RBC 4.33 Hgb 13.0 Hct 39.0 MCV 90 MCH 30 MCHC 33 RDW 14.9 Plt Count 269 [place] % (Auto) Print Project Manager Add Manual Diff Complete Total Counted 100 Seg Neuts % (Manual) 66.0 Band Neutrophils % 0 Lymphocytes % (Manual) 20.0 Reactive Lymphs % (Man) 0 Monocytes % (Manual) 14.0 H Eosinophils % (Manual) 0 Basophils % (Manual) 0 Metamyelocytes % 0 Myelocytes % 0 Promyelocytes % 0 Blast Cells % 0 Nucleated RBC % Not Reportable Seg Neutrophils # Man 6.1 Band Neutrophils # 0.0 Lymphocytes # (Manual) 1.9 Abs React Lymphs (Man) 0.0 Monocytes # (Manual) 1.3 H Eosinophils # (Manual) 0.0 Basophils # (Manual) 0.0 Metamyelocytes # 0.0 Myelocytes # 0.0 Promyelocytes # 0.0 Blast Cells # 0.0 WBC Morphology Not Reportable Hypersegmented Neuts Not Reportable Hyposegmented Neuts Not Reportable Hypogranular Neuts Not Reportable Smudge Cells Not Reportable Toxic Granulation Not Reportable Toxic Vacuolation Not Reportable Dohle Bodies Not Reportable Pelger-Huet Anomaly Not Reportable Lizabeth Rods Not Reportable Platelet Estimate Not Reportable Clumped Platelets Not Reportable Plt Clumps, EDTA Not Reportable Large Platelets Not Reportable Giant Platelets Not Reportable Platelet Satelliting Not Reportable Plt Morphology Comment Not Reportable RBC Morphology Normal Dimorphic RBCs Not Reportable Polychromasia Not Reportable Hypochromasia Not Reportable Poikilocytosis Not Reportable Anisocytosis Not Reportable Microcytosis Not Reportable Macrocytosis Not Reportable Spherocytes Not Reportable Pappenheimer Bodies Not Reportable Sickle Cells Not Reportable Target Cells Not Reportable Tear Drop Cells Not Reportable Ovalocytes Not Reportable Helmet Cells Not Reportable Villagomez-[place] Bodies Not Reportable [place] Rings Not Reportable Babar Cells Not Reportable Bite Cells Not Reportable Crenated Cell Not Reportable Elliptocytes Not Reportable Acanthocytes (Spur) Not Reportable Rouleaux Not Reportable Hemoglobin C Crystals Not Reportable Schistocytes Not Reportable Malaria parasites Not Reportable Faisal Bodies Not Reportable Hem Pathologist Commnt No Sodium 148 H Potassium 3.7 Chloride 110.1 H Carbon Dioxide 26 Anion Gap 16 BUN 12 Creatinine 1.0 Estimated GFR > 60 BUN/Creatinine Ratio 12 Glucose 99 Calcium 8.6
[2018-03-17] MEDS: PROTONIX IV SCH (14:25)
[2018-03-17] MEDS: PEPCID IV SCH (14:25)
[2018-03-17] MEDS: MORPHINE IV PRN ×2 (14:43→21:35)
[2018-03-17] MEDS: SODIUM CHLORIDE FLUSH SYRINGE 10 ML IV SCH ×2 (14:46→21:45)
[2018-03-18] MEDS: ZOSYN/NS 4.5GM/100ML 4.5 GM/100 ML VIAL IV SCH ×3 (02:30→18:50)
[2018-03-18] MEDS: D5W/0.45% NACL/KCL 20 MEQ 20 MEQ/1,000 ML BAG IV SCH ×2 (04:36→18:56)
[2018-03-18] MEDS ORDERED: XYLOCAINE MPF 2% ONE (08:00)
[2018-03-18] MEDS ORDERED: WATER FOR IRRIG STERILE IR ONE (08:02)
--- NOTE | 2018-03-18 08:23 | Anesthesia Consultation ---
Anesthesia Consult and Med Hx Date of service: 03/18/18 - Airway Anesthetic Teeth Evaluation: Chipped ROM Head & Neck: Adequate Mental/Hyoid Distance: Adequate Mallampati Class: Class II Intubation Access Assessment: Probably Good - Pulmonary Exam CTA: Yes - Cardiac Exam Cardiac Exam: RRR - Pre-Operative Health Status ASA Pre-Surgery Classification: ASA2 Proposed Anesthetic Plan: MAC - Pulmonary Hx Smoking: Yes (since ) - Hematic Hx Sickle Cell Disease: Yes (trait only ) - Other Systems Hx Alcohol Use: Yes Hx Substance Use: Yes (marijuana )
--- NOTE | 2018-03-18 08:24 | Anesthesia Day of Surgery ---
Anesthesia Day of Surgery - Day of Surgery Patient Examined: Yes Patient H&P Reviewed: Yes Patient is NPO: Yes
[2018-03-18] MEDS ORDERED: DIPRIVAN 10 MG/ML IV ONE ×2 (08:26)
--- NOTE | 2018-03-18 08:38 | Post Operative Note ---
Pre-op diagnosis: intractable nausea/vomiting, abdominal pain Post-op diagnosis: same (gastritis (biopsied)) Findings: 1. Localized erythematous mucosa in proximal gastric body. couple small clean based erosions in gastric body 2. Otherwise, unremarkable upper endoscopy without signs of gastric outlet obstruction or PUD. Procedure: EGD with biopsies Anesthesia: MAC Surgeon: ROB STERLING Estimated blood loss: minimal Pathology: list (Jar A - gastric biopsies) Specimen disposition: to lab Condition: stable Disposition: floor
[2018-03-18 08:47] LABS: INR 0.94 (0.87-1.13)
--- NOTE | 2018-03-18 08:50 | Progress Note ---
Assessment and Plan Assessment and plan: Colitis. CT scan reveals abnormal wall thickening of the right side of the colon, transverse colon and descending colon consistent with nonspecific colitis. Continue IV antibiotics. Leukocytosis has improved. EGD revealed Localized erythematous mucosa in proximal gastric body. Couple small clean based erosions in gastric body. Otherwise, unremarkable upper endoscopy without signs of gastric outlet obstruction or PUD. Sepsis. Continue IV antibiotics. Follow blood cultures. Asthma. Stable. History Interval history: No new issues overnight. Patient reports abdominal pain is improved. No nausea or vomiting. No fever chills. Hospitalist Physical - Constitutional Vitals: Temp Pulse Resp BP Pulse Ox 98.4 F 50 L 12 138/75 100 03/18/18 08:38 03/18/18 08:38 03/18/18 08:38 03/18/18 08:38 03/18/18 08:38 General appearance: Present: no acute distress, well-nourished - EENT Eyes: Present: PERRL, EOM intact ENT: hearing intact, clear oral mucosa, dentition normal - Neck Neck: Present: supple, normal ROM - Respiratory Respiratory effort: normal Respiratory: bilateral: CTA - Cardiovascular Rhythm: regular Heart Sounds: Present: S1 & S2. Absent: gallop, rub - Extremities Extremities: no ischemia, No edema, Full ROM - Abdominal General gastrointestinal: soft, non-tender, non-distended, normal bowel sounds - Integumentary Integumentary: Present: clear, warm, dry - Neurologic Neurologic: CNII-XII intact, moves all extremities Results - Labs CBC & Chem 7: 03/17/18 07:08 03/17/18 07:08 Labs: Laboratory Last Values WBC 9.3 K/mm3 (4.5-11.0) 03/17/18 07:08 RBC 4.33 M/mm3 (3.65-5.03) 03/17/18 07:08 Hgb 13.0 gm/dl (10.1-14.3) 03/17/18 07:08 Hct 39.0 % (30.3-42.9) 03/17/18 07:08 MCV 90 fl (79-97) 03/17/18 07:08 MCH 30 pg (28-32) 03/17/18 07:08 MCHC 33 % (30-34) 03/17/18 07:08 RDW 14.9 % (13.2-15.2) 03/17/18 07:08 Plt Count 269 K/mm3 (140-440) 03/17/18 07:08 Lymph % (Auto) 12.1 % (13.4-35.0) L 03/16/18 05:32 [place] % (Auto) Net Trainer 03/17/18 07:08 Eos % (Auto) 0.0 % (0.0-4.3) 03/16/18 05:32 Baso % (Auto) 0.2 % (0.0-1.8) 03/16/18 05:32 Lymph # 1.7 K/mm3 (1.2-5.4) 03/16/18 05:32 [place] # 1.3 K/mm3 (0.0-0.8) H 03/16/18 05:32 Eos # 0.0 K/mm3 (0.0-0.4) 03/16/18 05:32 Baso # 0.0 K/mm3 (0.0-0.1) 03/16/18 05:32 Add Manual Diff Complete 03/17/18 07:08 Total Counted 100 03/17/18 07:08 Seg Neutrophils % 77.8 % (40.0-70.0) H 03/16/18 05:32 Seg Neuts % (Manual) 66.0 % (40.0-70.0) 03/17/18 07:08 Band Neutrophils % 0 % 03/17/18 07:08 Lymphocytes % (Manual) 20.0 % (13.4-35.0) 03/17/18 07:08 Reactive Lymphs % (Man) 0 % 03/17/18 07:08 Monocytes % (Manual) 14.0 % (0.0-7.3) H 03/17/18 07:08 Eosinophils % (Manual) 0 % (0.0-4.3) 03/17/18 07:08 Basophils % (Manual) 0 % (0.0-1.8) 03/17/18 07:08 Metamyelocytes % 0 % 03/17/18 07:08 Myelocytes % 0 % 03/17/18 07:08 Promyelocytes % 0 % 03/17/18 07:08 Blast Cells % 0 % 03/17/18 07:08 Nucleated RBC % Not Reportable 03/17/18 07:08 Seg Neutrophils # 10.6 K/mm3 (1.8-7.7) H 03/16/18 05:32 Seg Neutrophils # Man 6.1 K/mm3 (1.8-7.7) 03/17/18 07:08 Band Neutrophils # 0.0 K/mm3 03/17/18 07:08 Lymphocytes # (Manual) 1.9 K/mm3 (1.2-5.4) 03/17/18 07:08 Abs React Lymphs (Man) 0.0 K/mm3 03/17/18 07:08 Monocytes # (Manual) 1.3 K/mm3 (0.0-0.8) H 03/17/18 07:08 Eosinophils # (Manual) 0.0 K/mm3 (0.0-0.4) 03/17/18 07:08 Basophils # (Manual) 0.0 K/mm3 (0.0-0.1) 03/17/18 07:08 Metamyelocytes # 0.0 K/mm3 03/17/18 07:08 Myelocytes # 0.0 K/mm3 03/17/18 07:08 Promyelocytes # 0.0 K/mm3 03/17/18 07:08 Blast Cells # 0.0 K/mm3 03/17/18 07:08 WBC Morphology Not Reportable 03/17/18 07:08 Hypersegmented Neuts Not Reportable 03/17/18 07:08 Hyposegmented Neuts Not Reportable 03/17/18 07:08 Hypogranular Neuts Not Reportable 03/17/18 07:08 Smudge Cells Not Reportable 03/17/18 07:08 Toxic Granulation Not Reportable 03/17/18 07:08 Toxic Vacuolation Not Reportable 03/17/18 07:08 Dohle Bodies Not Reportable 03/17/18 07:08 Pelger-Huet Anomaly Not Reportable 03/17/18 07:08 Lizabeth Rods Not Reportable 03/17/18 07:08 Platelet Estimate Not Reportable 03/17/18 07:08 Clumped Platelets Not Reportable 03/17/18 07:08 Plt Clumps, EDTA Not Reportable 03/17/18 07:08 Large Platelets Not Reportable 03/17/18 07:08 Giant Platelets Not Reportable 03/17/18 07:08 Platelet Satelliting Not Reportable 03/17/18 07:08 Plt Morphology Comment Not Reportable 03/17/18 07:08 RBC Morphology Normal 03/17/18 07:08 Dimorphic RBCs Not Reportable 03/17/18 07:08 Polychromasia Not Reportable 03/17/18 07:08 Hypochromasia Not Reportable 03/17/18 07:08 Poikilocytosis Not Reportable 03/17/18 07:08 Anisocytosis Not Reportable 03/17/18 07:08 Microcytosis Not Reportable 03/17/18 07:08 Macrocytosis Not Reportable 03/17/18 07:08 Spherocytes Not Reportable 03/17/18 07:08 Pappenheimer Bodies Not Reportable 03/17/18 07:08 Sickle Cells Not Reportable 03/17/18 07:08 Target Cells Not Reportable 03/17/18 07:08 Tear Drop Cells Not Reportable 03/17/18 07:08 Ovalocytes Not Reportable 03/17/18 07:08 Helmet Cells Not Reportable 03/17/18 07:08 Villagomez-Waikele Bodies Not Reportable 03/17/18 07:08 [place] Rings Not Reportable 03/17/18 07:08 [place] Cells Not Reportable 03/17/18 07:08 Bite Cells Not Reportable 03/17/18 07:08 Crenated Cell Not Reportable 03/17/18 07:08 Elliptocytes Not Reportable 03/17/18 07:08 Acanthocytes (Spur) Not Reportable 03/17/18 07:08 Rouleaux Not Reportable 03/17/18 07:08 Hemoglobin C Crystals Not Reportable 03/17/18 07:08 Schistocytes Not Reportable 03/17/18 07:08 Malaria parasites Not Reportable 03/17/18 07:08 Faisal Bodies Not Reportable 03/17/18 07:08 Hem Pathologist Commnt No 03/17/18 07:08 PT 13.0 Sec. (12.2-14.9) 03/18/18 08:22 INR 0.94 (0.87-1.13) 03/18/18 08:22 Sodium 148 mmol/L (137-145) H 03/17/18 07:08 Potassium 3.7 mmol/L (3.6-5.0) 03/17/18 07:08 Chloride 110.1 mmol/L (98-107) H 03/17/18 07:08 Carbon Dioxide 26 mmol/L (22-30) 03/17/18 07:08 Anion Gap 16 mmol/L 03/17/18 07:08 BUN 12 mg/dL (7-17) 03/17/18 07:08 Creatinine 1.0 mg/dL (0.7-1.2) 03/17/18 07:08 Estimated GFR > 60 ml/min 03/17/18 07:08 BUN/Creatinine Ratio 12 % 03/17/18 07:08 Glucose 99 mg/dL (65-100) 03/17/18 07:08 Lactic Acid 1.80 mmol/L (0.7-2.0) 03/15/18 14:59 Calcium 8.6 mg/dL (8.4-10.2) 03/17/18 07:08 Total Bilirubin 0.50 mg/dL (0.1-1.2) 03/16/18 05:32 AST 26 units/L (5-40) 03/16/18 05:32 ALT 26 units/L (7-56) 03/16/18 05:32 Alkaline Phosphatase 53 units/L (35-129) 03/16/18 05:32 Total Protein 6.8 g/dL (6.3-8.2) 03/16/18 05:32 Albumin 4.1 g/dL (3.9-5) 03/16/18 05:32 Albumin/Globulin Ratio 1.5 % 03/16/18 05:32 Amylase 81 units/L (27-131) 03/15/18 14:59 Lipase 10 units/L (13-60) L 03/15/18 14:59 Urine Color Yellow (Yellow) 03/15/18 12:20 Urine Turbidity Clear (Clear) 03/15/18 12:20 Urine pH 5.0 (5.0-7.0) 03/15/18 12:20 Ur Specific [place] 1.014 (1.003-1.030) 03/15/18 12:20 Urine Protein <15 mg/dl mg/dL (Negative) 03/15/18 12:20 Urine Glucose (UA) Neg mg/dL (Negative) 03/15/18 12:20 Urine Ketones 80 mg/dL (Negative) 03/15/18 12:20 Urine Blood Neg (Negative) 03/15/18 12:20 Urine Nitrite Neg (Negative) 03/15/18 12:20 Ur Reducing Substances Not Reportable 03/15/18 12:20 Urine Bilirubin Neg (Negative) 03/15/18 12:20 Urine Ictotest Not Reportable 03/15/18 12:20 Urine Urobilinogen < 2.0 mg/dL (<2.0) 03/15/18 12:20 Ur Leukocyte Esterase Sm (Negative) 03/15/18 12:20 Urine WBC (Auto) 1.0 /HPF (0.0-6.0) 03/15/18 12:20 Urine RBC (Auto) 5.0 /HPF (0.0-6.0) 03/15/18 12:20 U Epithel Cells (Auto) 7.0 /HPF (0-13.0) 03/15/18 12:20 Urine Bacteria (Auto) 1+ /HPF (Negative) 03/15/18 12:20 Urine Mucus Few /HPF 03/15/18 12:20 Urine Yeast (Budding) Few /HPF 03/15/18 12:20 Urine HCG, Qual Negative (Negative) 03/15/18 12:20
[2018-03-18] MEDS ORDERED: NACL 0.9% 1000 ML 1,000 ML IV SCH (09:00)
--- NOTE | 2018-03-18 09:12 | Operative Report ---
Operative Report Operative Report: Esophagogastroduodenoscopy Procedure Note with Biopsies Date of procedure: 03/18/2018 Endoscopist: Everardo Narvaez Pre-op diagnosis: intractable nausea/vomiting, abdominal pain Post-op diagnosis: gastritis (body of stomach), otherwise unremarkable upper endoscopy Anesthesia: MAC Complications: No immediate complications Estimated blood loss: minimal Procedure: After consent was obtained, the patient was placed in the left lateral decubitus position. The fujinon endoscope was inserted into the patient 's mouth under direct vision, and advanced to the 2nd portion of duodenum without difficulty. The patient tolerated the procedure well. The views of the mucosa were good. Patient's vital signs were monitored continuously throughout the procedure. Findings: The esophagus appeared normal. There was moderately severe erythematous mucosa in the proximal body (likely from retching episodes). Otherwise the stomach appeared normal. Biopsies were obtained from the stomach. The duodenum appeared normal. Impression: 1. Gastritis (location suggests this is due to retching episodes). Biopsies were obtained to rule out H pylori. 2. Otherwise, the stomach appeared normal. No gastric outlet obstruction or signs of PUD. Recommendations: -start clear liquid diet and advance as tolerated -PPI daily -if tolerating po, okay for discharge from GI stand point. Follow-up in GI clinic in 1-2 months. Will sign off, please call as needed or with questions.
[2018-03-18] MEDS: SODIUM CHLORIDE FLUSH SYRINGE 10 ML IV SCH ×2 (11:32→21:37)
[2018-03-18] MEDS: PROTONIX IV SCH (11:32)
--- NOTE | 2018-03-18 11:41 | Post Anesthesia Evaluation ---
- Post Anesthesia Evaluation Patient Participated: Yes Airway Patent: Yes Stable Respiratory Function: Yes Nausea/Vomiting: No Temp > 96.8F: Yes Pain Manageable: Yes Adequeate Hydration: Yes Anesthesia Complications: No
[2018-03-18] MEDS: MORPHINE IV PRN (11:42)
[2018-03-19] MEDS: ZOSYN/NS 4.5GM/100ML 4.5 GM/100 ML VIAL IV SCH ×2 (02:28→10:27)
[2018-03-19] MEDS: MORPHINE IV PRN (02:29)
[2018-03-19] MEDS: D5W/0.45% NACL/KCL 20 MEQ 20 MEQ/1,000 ML BAG IV SCH (06:23)
--- NOTE | 2018-03-19 07:57 | Discharge Summary ---
Providers - Providers Date of Admission: 03/15/18 16:39 Date of discharge: 03/19/18 Attending physician: LENA ROMEO 03/15/18 23:37 Consult to Physician [CONS] Routine Comment: Consulting Provider: ROB STERLING Physician Instructions: Reason For Exam: Colitis Primary care physician: WOOD GRAINER Hospitalization Reason for admission: abd pain Condition: Stable Hospital course: Patient is a 32 y/o female with PMH of asthma who presented to ED with c/o abdominal pain and associated N/V x [address] showed colitis and GI was consulted. The pt underwent EGD which revealed Localized erythematous mucosa in proximal gastric body. A couple small clean based erosions in gastric body but otherwise unremarkable upper endoscopy without signs of gastric outlet obstruction or PUD. The pt received IV Abx for any infectious etiology. Stool Studies completed and are pending. Symptoms improved and pt tolerated diet. Therefore, pt will d/c home w/ f/u w/ GI for stool study results. D/c time 32 minutes Disposition: DC-01 TO HOME OR SELFCARE Time spent for discharge: 32 - Discharge Diagnoses (1) Sepsis Status: Acute (2) Acute colitis Status: Acute (3) Dehydration Status: Acute Core Measure Documentation - Palliative Care Palliative Care/ Comfort Measures: Not Applicable - Core Measures Any of the following diagnoses?: none Exam - Constitutional Vitals: Temp Pulse Resp BP Pulse Ox 98.7 F 60 16 117/87 100 03/18/18 19:56 03/18/18 19:56 03/18/18 19:56 03/18/18 19:56 03/18/18 19:56 General appearance: Present: no acute distress, well-nourished - EENT Eyes: Present: PERRL ENT: hearing intact, clear oral mucosa - Neck Neck: Present: supple, normal ROM - Respiratory Respiratory effort: normal Respiratory: bilateral: CTA - Cardiovascular Heart Sounds: Present: S1 & S2. Absent: rub, click - Extremities Extremities: pulses symmetrical, No edema Peripheral Pulses: within normal limits - Abdominal General gastrointestinal: Present: soft, non-tender, non-distended, normal bowel sounds Female genitourinary: Present: normal - Integumentary Integumentary: Present: clear, warm, dry - Musculoskeletal Musculoskeletal: gait normal, strength equal bilaterally - Psychiatric Psychiatric: appropriate mood/affect, intact judgment & insight - Neurologic Neurologic: CNII-XII intact, moves all extremities Plan Activity: no restrictions Weight Bearing Status: Full Weight Bearing Diet: regular Follow up with: PRIMARY CAREMD [Primary Care Provider] - 3-5 Days JOLIE GALEANA MD [Staff Physician] - 7 Days Prescriptions: metroNIDAZOLE [Flagyl CAP] 500 mg PO Q8H #30 capsule Pantoprazole [Protonix TAB] 40 mg PO DAILY #30 tablet
[2018-03-19 09:41] VITALS: BP 111/71
[2018-03-19] MEDS ORDERED: PROTONIX PO SCH (10:00)
== END 2018-03-19 12:30 | disposition home or self-care (01) | DRG 872 ==
LOC: ED 11:03 → 3A 16:39
PROVIDERS: ADMIT Internal Medicine; ATTEND Hospitalist
PROC: 0DB68ZX Excision of Stomach, Via Natural or Artificial Opening Endoscopic, Diagnostic (ICD-10-PCS; principal; 2018-03-18)
DX: A41.9 Sepsis, unspecified organism (principal); K52.9 Noninfective gastroenteritis and colitis, unspecified; F12.90 Cannabis use, unspecified, uncomplicated; F17.200 Nicotine dependence, unspecified, uncomplicated; D57.3 Sickle-cell trait
CPT/HCPCS: 36415; 71046; 74177; 80048; 80053; 81001; 81025; 82140; 82150; 83690; 85007; 85025; 85610; 87040; 87045; 87086; 88305; 88342; 93005; 93010; 96361; 96365; 96367; 96372; 96375; C9113; J0500; J1956; J2270; J2405; J2543; J2704; J7030; J7042; Q9967